=== PATIENT | male | born 1975 | race Caucasian/White ===

== ENCOUNTER 2018-09-27 09:33 | Inpatient (IN) | payer BC, OTHER ==
[~2018-09-27] VITALS: Ht 190.5 cm; Wt 92.5 kg
--- NOTE | ~2018-09-27 | O ---
[facility] [place] [address] OPERATIVE REPORT Name: Miles Lilly Room #: 458-P ADM IN M.R.#: [id number] Admission: 09/27/18 ������������������ Attend Phys: Amadeo Curtis MD Discharge: ������������������ Date of : 77 Report #: [id number] THIS REPORT FOR: //name// CC: Amadeo Morgan daryny DATE OF SERVICE: 09/30/2018 PREOPERATIVE DIAGNOSIS: Left foot, heel abscess. POSTOPERATIVE DIAGNOSIS: Left foot, heel abscess. PROCEDURE: Left foot irrigation and debridement of heel. SURGEON: Niranjan Leavitt MD ANESTHESIA: General. ESTIMATED BLOOD LOSS: Minimal. DRAINS: No drains. TOURNIQUET TIME: 8 minutes. DESCRIPTION OF PROCEDURE: The patient was brought to the operating room where he was placed under general anesthesia. Once under adequate general anesthesia, his left lower extremity was elevated and tourniquet placed to 250 mmHg. A medial incision at the medial aspect of the heel approximately 2 cm in length was then made, abundant purulence did emanate from the wound at this point, cultures were taken of this. A similar incision laterally was made as well. Hemostat was spread to help express purulence. The wound was then irrigated through and through with copious amounts of normal saline solution. A Belden drain was then placed through and through as well. The wound was then dressed with 4 x 4s, ABDs, Kerlix, and Feng. There were no complications from the procedure. Tourniquet was let down at 8 minutes. Toes were pink and warm with good capillary refill. There were no complications from the procedure. The patient tolerated the procedure well and went to the recovery room without incident. ��������������������������������������������� ���������������������������������������� By: ��������������������������������������������� 1902 1925 Niranjan Leavitt MD /nt
[2018-09-27 09:35] VITALS: BP 186/90
[2018-09-27 10:11] LABS: ABSOLUTE NEUTROPHILS 11.3 thou/uL (1.4-8.2); BASOPHILS 0.9 % (0.0-2.0); EOSINOPHILS 1.2 % (0.0-3.0); HEMATOCRIT 42.9 % (42.0-52.0); HEMOGLOBIN 14.9 gm/dL (14.0-18.0); LYMPHOCYTES 9.7 % (24.0-44.0); MCH 30.6 pg (26.0-34.0); MCHC 34.6 g/dL (28.0-37.0); MCV 88.3 fL (80.0-100.0); MONOCYTES 9.2 % (1.0-8.0); PLATELET COUNT 241 thou/uL (150-400); RBC 4.86 mil/uL (4.50-6.00); RDW 14.1 % (10.5-14.5); WBC 14.3 thou/uL (4.0-11.0)
[2018-09-27 10:17] LABS: CALCIUM 9.4 mg/dL (8.5-10.1); CREATININE 1.1 mg/dL (0.7-1.3)
[2018-09-27 10:22] LABS: ALBUMIN 3.8 g/dL (3.4-5.0); TOTAL BILIRUBIN 0.5 mg/dL (<0.1-1.0); TOTAL PROTEIN 8.4 g/dL (6.4-8.2)
[2018-09-27 11:00] VITALS: BP 139/90
[2018-09-27 12:47] VITALS: BP 149/89
[2018-09-27] MEDS ORDERED: PRAZOSIN 1 MG CA1 M1 PO (13:24)
[2018-09-27] MEDS ORDERED: TRAZODONE HCL50 MG PO (13:25)
[2018-09-27] MEDS ORDERED: PAXIL10 MG PO (13:25)
[2018-09-27] MEDS ORDERED: NEURONTIN600 MG PO ×2 (13:26→13:27)
[2018-09-27] MEDS ORDERED: LEVAQUIN 750 M750 MG PO (13:28)
[2018-09-27] MEDS ORDERED: CLEOCIN HCL150 MG PO (13:28)
--- NOTE | 2018-09-27 16:17 | NUR ---
PATIENT ADMITTED FOR CELLULITIS. A/OX4, PAIN MANAGED WITH MEDICATIONS, DR GIVENS ROUNDED ON PATIENT DURRING ADMISSION. MRI TO BE COMPLETED TOMORROW. FALL PRECATIONS DUE TO RECENT AT HOME AND PATIENT IS NOT ABLE TO BEAR WEIGHT ON LEFT FOOT THAT HAS THE CELLULITIS. ADMISSION ASSESMENT AND HISTORY. COMPLETED. CALL LIGHT IN REACH.
[2018-09-27 19:26] VITALS: BP 157/82
--- NOTE | 2018-09-28 03:44 | NUR ---
ASSUMED PT CARE AROUND 1900. A&OX4. C/O LEFT HEEL PAIN. PAIN MEDICATION GIVEN WITH SOME RELIEF. LT HEEL IS WARM, RED, SWOLLEN. VSS. PT SLEPT MOST OF THE NIGHT. RESP EVEN AND UNLABORED. VOIDING ADEQUATELY PER URINAL. NO MAJOR COMPLAINTS THIS SHIFT. FALL PRECAUTIONS IN PLACE. PROGRESSING SLOWLY TOWARD POC GOALS. WILL CONTINUE TO MONITOR FURTHER.
[2018-09-28 05:55] LABS: ABSOLUTE NEUTROPHILS 7.6 thou/uL (1.4-8.2); BASOPHILS 0.9 % (0.0-2.0); EOSINOPHILS 2.4 % (0.0-3.0); HEMATOCRIT 41.5 % (42.0-52.0); HEMOGLOBIN 14.5 gm/dL (14.0-18.0); LYMPHOCYTES 14.9 % (24.0-44.0); MCH 30.9 pg (26.0-34.0); MCHC 34.9 g/dL (28.0-37.0); MCV 88.7 fL (80.0-100.0); MONOCYTES 10.6 % (1.0-8.0); PLATELET COUNT 244 thou/uL (150-400); POLYS 71.2 % (36.0-66.0); RBC 4.68 mil/uL (4.50-6.00); RDW 14.1 % (10.5-14.5); WBC 10.7 thou/uL (4.0-11.0)
[2018-09-28 05:57] LABS: POTASSIUM 4.1 mmol/L (3.5-5.1)
[2018-09-28 06:03] VITALS: BP 144/96
[2018-09-28 07:47] VITALS: BP 129/64
--- NOTE | 2018-09-28 15:29 | NUR ---
PT ADMITTED RELATED TO CELLULITIS LEFT FOOT. CM REVIEWED CHART AND SPOKE WITH CARE TEAM. CM MET WITH PT AT BEDSIDE THIS DAY. PT IS A&O X4. CM ROLE INTRODCUED. PT INDICATED HE LIVES IN A HOUSE WITH TWO UNRELATED ADULTS AND HIS TWO CHILDREN 3 DAYS A WEEK. PT INDICATED THERE ARE 2 STEPS TO ENTER AND NO STEPS INSIDE. 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 PT INDICATED HE PLANS TO RETURN HOME ONCE MEDICALLY STABLE. CM TO FOLLOW INDICATED WITH DC PLANNING.
[2018-09-28 15:59] VITALS: BP 144/76
--- NOTE | 2018-09-28 16:39 | NUR ---
PT IS ALERT AND OREINTED X4. LUNGS ARE CLEAR TO DIMINISHED. VOIDS PER URINAL HAS PAIN NOTED ACHY IN LEFT LEG IS REDENED AND WARM WITH CELLULITIS ON ANTIBIOTICS COVERAGE. EATING A REGULAR DIET TOLERATING WELL. USES CALL LIGHT IF NEEDS ASSISTANCE FOR NURSING CARE. PAIN MEDS GIVEN ON MAY SEE TIME FOR ADMINISTRATION OF MEDS. DIAGNOSTIC TESTING DONE THIS AM. AND ORTHO CONSULT NOTIFIED. WILL CONTINUE TO ASSESS AND MONITOR PER NURSING
--- NOTE | 2018-09-28 17:41 | HC ---
[facility] [place] [address] CONSULTATION Name: Miles Lilly Room #: 458-P ADM IN M.R.#: [id number] Admission: 09/27/18 ������������������ Attend Phys: Amadeo Curtis MD Discharge: ������������������ Date of : 77 Report #: [id number] THIS REPORT FOR: //name// CC: Amadeo Delcid DATE OF SERVICE: 09/27/2018 REASON FOR CONSULTATION: I was asked to evaluate concerning left heel pain for the last 10 days. HISTORY OF PRESENT ILLNESS: The patient is a 42-year-old with history of PTSD, anxiety and depression who presents with increased pain, swelling involving his left heel. No specific injury identified. Onset was 10 days ago. 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 No specific injury noted or foreign body noted in his boots. He has had low-grade fever, chills and sweats. Started on ciprofloxacin and clindamycin several days ago without improvement. Presents now for further evaluation. He reports the pain in his foot is up to a 10. No other skin lesions noted. No other joint issues. REVIEW OF SYSTEMS: A 10-point review of systems was negative other than what was described above. ALLERGIES: None known. MEDICATIONS: As noted on his MAR, which were reviewed. PAST MEDICAL HISTORY: PTSD, depression, anxiety, multiple neck and facial reconstructive surgeries, right pointer finger partial amputation, tobacco use. FAMILY HISTORY: Noncontributory. SOCIAL HISTORY: Smoker of cigarettes and marijuana, past alcohol use. PHYSICAL EXAMINATION: VITAL SIGNS: Afebrile and hemodynamically stable. GENERAL: Alert and cooperative. SKIN: With several tattoos, otherwise unremarkable other than what will be described on his extremity examination. No palpable adenopathy. HEENT: Eyes without scleral icterus. Mouth without mucositis. NECK: Supple. LUNGS: Clear. HEART: Regular, without murmur, gallop or rub. ABDOMEN: Soft, nontender, no hepatosplenomegaly or mass. GENITAL AND RECTAL: Not performed. EXTREMITIES: Pulses in his right femoral, popliteal, and foot normal. Right [facility] [address] [place] [address] CONSULTATION Name: Miles Lilly Room #: 458-P ADM IN M.R.#: [id number] Admission: 09/27/18 ������������������ Attend Phys: Amadeo Curtis MD Discharge: ������������������ Date of : 77 Report #: [id number] foot with erythema, fluctuance involving the heel pad, which extended to the ankle. There was some ecchymosis. There was erythema involving the hindfoot and ankle region. Had exquisite tenderness to palpation over the heel pad. I could find no break into the skin. Sensation in his feet were normal. Capillary refill normal. Strength in the upper and lower extremities was normal. Mood normal. LABORATORY STUDIES: Creatinine 1.1. Liver function test normal. Hemoglobin 14.9, white count 14.3, platelet count 241,000. X-ray of his foot showed no evidence of bony change or foreign body. IMPRESSION: 1. A 42-year-old with soft tissue infection of his left hindfoot. Suspect heel pad abscess. Still unclear if he may have a foreign body that is not radiopaque. 2. Underlying history of tobacco use. 3. Depression, under control. 4. Posttraumatic stress disorder, controlled. RECOMMENDATION: Consultation for surgical intervention. We will continue IV antibiotic therapy, make adjustments after cultures are back. Continue with pain management. MRI scan is scheduled. ��������������������������������������������� <ELECTRONICALLY SIGNED> ���������������������������������������� By: Maged Earl MD ��������������������������������������������� 09/28/18 1741 [id number] Maged Earl MD /nt
--- NOTE | 2018-09-28 18:23 | EKG ---
[address] [address] ELECTROCARDIOGRAM REPORT Name: Miles Lilly Room #: 458-P ADM IN M.R.#: [id number] ������������������ Admission: 09/27/18 ������������������ Attend Phys: Amadeo Curtis MD Discharge: ������������������ Date of : 77 Report #: [id number] ����������������������������������������������������������������� [id number] THIS REPORT FOR: //name// [facility] Test Date: 2018-09-27 Test Time: 15:22:06 Pat Name: Miles Lilly Department: Room: [facility] Gender: M Tape Recorder Repairer: Odell VILLAFUERTE : 1975 Requested By: Dayday Padron Order Number: [id number] MD: Raymond Pierson Measurements Intervals [place] Rate: 66 P: -16 DC: 118 QRS: 78 QRSD: 112 T: 5 QT: 388 QTc: 407 Interpretive Statements Sinus rhythm Right ventricular conduction delay No previous ECG available for comparison Electronically Signed On 09-28-2018 18:22:59 CDT by Raymond Pierson [email or web address] ��������������������������������������������� <ELECTRONICALLY SIGNED> ���������������������������������������� By: Raymond Pierson MD, [facility] ��������������������������������������������� 09/28/18 1822 1522 1522 Raymond Pierson MD, FACC /EPI
--- NOTE | 2018-09-28 18:35 | NUR ---
PT IS ALERT AND ORIENTED X4. LEG IS TENDER LEFT ANKLE REDENED AND 2 PLUS EDEMA. MRI DIAGNOSTIC TESTING DONE. ANTIBIOTICS ON MAY FOR CELLULITIS ORDERED. PAIN MEDS GIVEN SEE MAY FOR PAIN TIME OF ADMINISTRATION AND ANKLE PAIN ACUTE OF ANKLE. LUNGS ARE CLEAR. VOIDS PER URINAL. VS STALBE. CALL LIGHT WITHIN REACH IF NEEDS ASSISTANCE
[2018-09-28 19:07] VITALS: BP 149/85
[2018-09-29 04:26] VITALS: BP 149/78
--- NOTE | 2018-09-29 06:04 | NUR ---
END OF SHIFT NOTE. ASSUMED CARE AT 1900 09/28/18. PATIENT A&O X4. PT SHOWERED WITH ASSISTANCE. C/O PAIN IN LEFT HEEL, TREATED WITH PRN PAIN MEDICATIONS. IV INFILTRATED, A NEW ONE WAS INSERTED.
[2018-09-29 07:26] VITALS: BP 138/73
--- NOTE | 2018-09-29 11:53 | NUR ---
Received awake on bed. Due medications given as prescribed. On regular diet- able to tolerate diet, no nausea, no vomiting, no abdominal pain noted. With SL at R FA- intact and flushing well. With cellulitis at L foot- still painful to touch and inflammed- on IV antibiotics. Up with assist. Complained of pain, due PRN pain medications given as prescribed. Vital signs stable. On room air.
--- NOTE | 2018-09-29 14:53 | NUR ---
Nutrition: Pt admitted with cellulitis of left foot. Seen due to dx. Pt tolerating regular diet and has a good appetite. Reviewed good nutrition, adequate protein intake for healing. Educated on how to order meals if desired. Stable weights around 220#. 204# weight taken suspected to be error. Low nutrition risk.
[2018-09-29 16:34] VITALS: BP 134/71
[2018-09-30] VITALS (8 sets, daily range): BP systolic 123–174; BP diastolic 74–96
--- NOTE | 2018-09-30 08:09 | NUR ---
Assumed care at 1845. Pt resting in bed. AOX4. VSS. Left leg elevated. No clear date of I&D schedule as of yet. Pt IV came of while he was turning at shift change. Attempted twice and informed the incoming nurse. No identified needs at the moment. Will continue to monitor.
--- NOTE | 2018-09-30 13:08 | NUR ---
TOWARDS POC PT A/OX4, VSS, AFEBRILE. PAIN MANAGED BY MEDS, ANTICIPATING I&D THIS AFTERNOON. NO CONCERNS VOICED. WILL CONTINUE TO MONITOR.
[2018-10-01 04:00] VITALS: BP 126/71
[2018-10-01 05:19] LABS: HEMATOCRIT 44.1 % (42.0-52.0)
[2018-10-01 05:37] LABS: POTASSIUM 4.1 mmol/L (3.5-5.1)
[2018-10-01 07:08] VITALS: BP 136/67
--- NOTE | 2018-10-01 07:12 | NUR ---
ASSUMED CARE AROUND 2029. AXOX4. S/P L HEEL I&D. VSS THROUGHOUT THE NIGHT. DIET ADVANCED TO REG. LLE ELEVATED AND PT DECLINED ICE PACKS AT THIS TIME. NO S/S ACUTE DISTRESS NOTED OR REPORTED AT THIS TIME. CARE TRANSFERRED TO DAY RN AT THIS TIME.
[2018-10-01 12:50] VITALS: BP 137/80
[2018-10-01 14:54] VITALS: BP 130/71
--- NOTE | 2018-10-01 16:11 | NUR ---
DISCHARGE PLANNING. POSSIBLE WEEKEND DISCHARGE TO HOME. HOME HEALTH SERVICES RECOMMENDED AT DISCHARGE. REFERRAL FAXED TO [facility] FOR PATIENTS HOME HEALTH NEEDS PER REQUEST. PATIENT WILL NEED WOUND CARE AND POSSIBLE IV ANTIBIOTIC INFUSION. AWAITING RESPONSE FROM [facility] INTAKE. FOLLOWING TO ASSIST WITH DISCHARGE NEEDS. [facility] CONTACT NUMBER IS [phone] CALL AND NOTIFY OF PATIENT DISCHARGE. A FAX NUMBER IS [phone] PLEASE FAX DISCHARGE AND HOME HEALTH ORDERS TO [facility] ONCE COMPLETED PER ATTENDING. THANK YOU
--- NOTE | 2018-10-01 16:42 | NUR ---
CM UNCERTAIN IF PT WILL NEED IV ABX UPON DC CM SENT FACE SHEET TO [facility] AND THEY INDICATED THAT THEY ARE IN NETWORK WITH PT'S INSURANCE. THEY INDICATED THAT FOR THE VANCO AND CEFTRIAXONE IT WOULD BE $47.48 PER DAY UNTIL $2000 DEDUCTABLE IS MET OF WHICH $36.35 HAS BEEN MET AND A $5/750 OUT OF POCKET OF WHICH $86.49 HAS BEEN MET. REFERRAL WAS ALSO SENT TO [facility] WHO DON'T GO TO [place], [facility] WHO ARE AT [place], AND [facility]. [facility] WOULD BE THE ONE TO SEND ORDERS TO SHOULD PT BE READY TO LEAVE OVER WEEKEND. [facility]: P: F: [facility]: P: F:
[2018-10-01 16:52] VITALS: BP 130/71
--- NOTE | 2018-10-01 19:27 | NUR ---
PT A&OX4, VSS, PAIN IN LEFT FOOT. PATIENT STATES HIS PAIN IS CONSTANT. PAIN MEDICATION ALTERNATED Q2 HRS. LEFT LEG ELEVATED. ANTIBIOTICS RAN ORDERED. DOCTOR ORDERED PICC LINE TO BE INSERTED AND CONSENT HAS BEEN SIGNED FOR IV TEAM TO DO SO. FALL PRECATIONS IN PLACE. NO SIGNS OF DISTRESS. DRESSING ON FOOT C/D/I. WILL CONTINUE TO MONITOR.
[2018-10-01 19:34] VITALS: BP 148/92
--- NOTE | 2018-10-01 19:52 | NUR ---
vascular access team consulted for picc placement. WHEN TALKING TO PATIENT ABOUT PROCEDURE, PT BEGAN TO BECOME VERY AGGITATED AND CRYING. STATES 2 DOCTORS TOLD HIM 2 DIFFERENT THINGS SO HE REFUSED PICC TONIGHT. PRIMARY RN PRESENT. PIV WORKING WELL AT PRESENT
[2018-10-02] VITALS (7 sets, daily range): BP systolic 130–159; BP diastolic 67–85
--- NOTE | 2018-10-02 03:24 | NUR ---
PATIENT'S 1400 DOSE OF VANCO WAS NOT INFUSED IT WAS BURNING PATIENT DURING THE DAY. PATIENT WAS TO HAVE A PICC LINE PLACED ON DIRECTOR OF FIELD COORDINATION. IV TEAM CAME TO PLACE PICC, HOWEVER, PATIENT REFUSED STATING HE WOULD LIKE TO WAIT UNTIL AM SHIFT AND TALK TO DOCTORS ONE DOCTOR TOLD HIM ONE THING AND ANOTHER DOCTOR TOLD HIM SOMETHING ELSE REGARDING THE PICC LINE. THIS NURSE JUST HUNG THE 0200 VANCO PATIENT WAS ASLEEP AND HAD A DIFFICULT TIME WITH HIS PAIN AT SHIFT CHANGE. THE PATIENT STATED THAT HE WOULD TRY THIS INFUSION AND IT WAS STARTED AT A SLOWER RATE TO HELP WITH HIS DISCOMFORT. WILL MONITOR.
--- NOTE | 2018-10-02 03:42 | NUR ---
MEDICATED WITH VICODIN AND MORPHINE (SWITCHING MEDS) PER PATIENTS REQUEST. ALSO GIVEN ATIVAN 1MG PO FOR ANXIETY. PLACED NICOTINE PATCH ON LEFT UPPER BACK HE IS A SMOKER OF APPROX. 1 PACK A DAY PER HIS MOTHER (VIA PHONE CALL) AND HIMSELF. WILL MONITOR.
--- NOTE | 2018-10-02 14:32 | NUR ---
VASCULAR ACCESS CONSULTED 10/01 FOR PICC LINE, PT STILL REFUSING PICC BUT AGREED TO MIDLINE. DISCUSSED BENEFITS AND RISK OF MIDLINE VERBALIZED UNDERSTANDING. PT VERY ANXIOUS. ELIAS BASILIC WAS WIDELY PATENT WITH USG, DURING LIDOCAINE ADMINISTRATION PT SCREAMING AND THRASHING IN BED. 4FR POWER MIDLINE TRIMMED TO 14CM INSERTED PER POLICY. BRISK BR/FLUSH. ML RELEASED FOR IMMEDIATE USE PER PROTOCOL.
--- NOTE | 2018-10-02 18:35 | NUR ---
ASSUMED CARE OF PATIENT 0715, PATIENT ALERT AND ORIENTED X 4. 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 PATIENT NPO AT BREAKFAST. PATIENT ALSO RECEIVED HYDROCODONE 1 TABLET THIS AM, AND RECEIVED MORPHINE AT 1307, WITH PARTIAL RELIEF. PATIENT LEFT THE FLOOR AT ABOUT 1430 FOR SURGERY. RETURNED BACK TO THE UNIT AT 1730, PAIN LEVEL OK, PATIENT HAS LEFT FOOT DRESSING IN PLACE, WITH MORE PADDING FOR COMFORT. ASKING FOR SLEEP AIDS FOR TONIGHT, PAGED DR MURDOCK, NO RETURN CALL BACK, WILL HAVE NIGHT NURSE ADDRESS SLEEP MEDS. DINNER TRAY ORDERED AND RECEIVED. WILL CONTINUE TO MONITOR. PATIENT HAS RIGHT FOREARM IV, BUT STARTED LEAKING, CALLED IV TEAM, PATIENT RECEIVED LEFT UPPER ARM MIDLINE. PATIENT RECEIVED VANCO IV IN SURG. WILL CONTINUE TO MONITOR.
--- NOTE | 2018-10-03 03:52 | NUR ---
PATIENT ALERT AND ORIENTED X4. REMAINS BEDREST, HOWEVER, HE STATED THAT THE DOCTOR TOLD HIM HE COULD GET IN A WHEELCHAIR AND GO OUTSIDE FOR SOME AIR. PATIENT IS HAVING A MUCH BETTER NIGHT REGARDING PAIN AND REST. LEFT FOOT UP WITH PILLOW AND DRESSING REMAINS DRY AND INTACT. A NEW ORDER FOR AMBIEN 10MG WAS OBTAINED AND GIVEN. THIS NURSE CINDY AM BLOOD ORDER FROM HIS MIDLINE W/O COMPLICATION. WILL MONITOR.
[2018-10-03 05:57] LABS: EOSINOPHILS 2.5 % (0.0-3.0); HEMATOCRIT 40.2 % (42.0-52.0); HEMOGLOBIN 13.6 gm/dL (14.0-18.0); LYMPHOCYTES 16.5 % (24.0-44.0); MCH 30.3 pg (26.0-34.0); MCHC 33.8 g/dL (28.0-37.0); MCV 89.6 fL (80.0-100.0); MONOCYTES 11.1 % (1.0-8.0); PLATELET COUNT 262 thou/uL (150-400); POLYS 68.9 % (36.0-66.0); RBC 4.49 mil/uL (4.50-6.00); RDW 14.3 % (10.5-14.5); WBC 10.1 thou/uL (4.0-11.0)
[2018-10-03 08:14] VITALS: BP 141/70
--- NOTE | 2018-10-03 09:32 | O ---
[facility] [place] [address] OPERATIVE REPORT Name: Miles Lilly Room #: 458-P ADM IN M.R.#: [id number] Admission: 09/27/18 ������������������ Attend Phys: Amadeo Curtis MD Discharge: ������������������ Date of : 77 Report #: [id number] THIS REPORT FOR: //name// CC: Amadeo Morgan osey DATE OF SERVICE: 10/02/2018 SERVICE: Orthopedics. FACILITY: [facility] SURGEON: Paul Russell MD DOLLY PUSHER: Arleth Mckeon NP. PREOPERATIVE DIAGNOSES: 1. Left heel wound. 2. Status post left heel I and D. POSTOPERATIVE DIAGNOSES: 1. Left heel wound. 2. Status post left heel I and D. PROCEDURE: Repeat I and D left heel wound measuring 6 cm x 5 cm. COMPLICATIONS: None. DRAINS: None. SPECIMENS: Cultures x 1. FINDINGS: 1. A small pocket of purulence at the distal aspect of the medial incision. Otherwise, wound was clean of purulence. 2. Iodoform packing placed within the wound. INDICATIONS: The patient is a 42-year-old gentleman with a history of a left heel wound that underwent I and D 2 days ago. He was having some increased pain this morning and did not tolerate his dressing change, so we evaluated carefully, found some additional drainage and felt that repeat surgical I and D was most appropriate. The patient was in agreement with treatment plan and gave full informed consent after the risks, benefits, alternatives, and indication of surgery were reviewed with him. PROCEDURE IN DETAIL: After left lower extremity was correctly identified in the [facility] [address] [place] [address] OPERATIVE REPORT Name: Miles Lilly Room #: 458-P ADM IN M.R.#: [id number] Admission: 09/27/18 ������������������ Attend Phys: Amadeo Curtis MD Discharge: ������������������ Date of : 77 Report #: [id number] preoperative holding area as the operative extremity, the patient was taken to the operating room where general anesthesia was induced without complication. Tourniquet was applied to the left calf. Left leg was prepped and draped in standard sterile fashion. He is already on antibiotic regimen. Time-out procedure was performed. Previous dressing had been taken down for prepping and draping. There is a medial wound and a lateral wound. The medial wound was extended by about 8 mm in a distal fashion as there was purulence in this portion of the wound. The wound was explored including superficially underneath some skin and there was approximately 2 mL of purulence within this space. This was bluntly explored and then the skin was resected with the scissors off of the heel, which left a pink beefy appearing dermal layer. A [place] was then used to debride the superficial aspect of the dermal layer, particularly on the center portion of the plantar side of the heel where there is some soft tissue injury, but there was no communication with a deep layer. The [place] was used to abrade the soft tissue within the wound bed. There was no exposed calcaneal bone. There were no more purulence deep within the wound. It was explored all the way across to the lateral wound. Then, 2 liters of saline was used to irrigate the wound thoroughly and then the wound was packed with iodoform gauze and then a nonstick dressing was placed followed by well-padded sterile dressing. The patient was awakened from anesthesia and taken to recovery room in stable condition. No complications. All counts were recorded as correct. ��������������������������������������������� <ELECTRONICALLY SIGNED> ���������������������������������������� By: Paul Russell MD ��������������������������������������������� 10/03/18 0932 1643 1830 Paul Russell MD /nt
[2018-10-03 15:00] VITALS: BP 132/66
[2018-10-03 19:51] VITALS: BP 135/67
--- NOTE | 2018-10-03 20:11 | NUR ---
ASSUMED CARE OF PATIENT AT 0715, PATIENT ALERT AND ORIENTED X 4. UP WITH ASSIST, WITH WALKER, NON-WEIGHT BEARING ON LEFT FOOT. WOUND CARE DOCTOR SAW THE PATIENT AND REMOVED SOME OF THE PACKINGS. PATIENT HAS BEEN IN PAIN ALL THE SHIFT, NOTIFIED ORTHO/NAOMY/YARD LABOR SUPERVISOR FOR MORE PAIN MEDS, RECEIVED ORDERS FOR MSCONTINE AND NAOMY/YARD LABOR SUPERVISOR STATES DR HONG STATES OK TO GIVE NOW, MS CONTIN 15MG AND LORAZEPAM 1 MG PO GIVEN, PATIENT STATES SOME RELIEF, 08/16. PATIENT HAS LEFT UPPER ARM MIDLINE IN PLACE, RECEIVED 2 IV ANTIBIOTICS THIS SHIFT. LEFT FOOT DRESSING C/D/I. WILL CONTINUE TO MONITOR.
--- NOTE | 2018-10-04 06:51 | NUR ---
PATIENT ALERT AND ORIENTED X4. USING URINAL W/O COMPLICATION. IVPB INFUSED W/O COMPLICATION. MEDICATED FOR PAIN X3 WITH VICODIN 10/325 TWO TABS. THIS GIVES PATIENT MORE RELIEF, HOWEVER STILL RATING PAIN 7-8. GIVEN ATIVAN X1 DURING THE NIGHT. RESTING QUIETLY. DRESSING DRY AND INTACT. WILL MONITOR.
[2018-10-04 08:00] VITALS: BP 148/83
--- NOTE | 2018-10-04 10:49 | NUR ---
SW received consult with home IV abx orders: ceftriaxone 1 gm IV daily and vancomycin 1 gm IV BID. SW faxed orders and midline report to [facility] and notified [employer] liaison of info. Awaiting verification of insurance coverage for abx. Pt will d/c home when medically stable. VERONICA is following to assist as needed with discharge planning.
[2018-10-04 15:00] VITALS: BP 146/77
[2018-10-04 17:35] LABS: AMP/METHAMP Negative (Negative); BARBITURATES Negative (Negative); BENZODIAZEPINES Negative (Negative); COCAINE Negative (Negative); METHADONE Negative (Negative); OPIATES POSITIVE (Negative); PCP Negative (Negative)
--- NOTE | 2018-10-04 19:51 | NUR ---
ASSUMED CARE 0700. ALERT X4, BECAME UPSET WITH CRYING AND SHAKING AND CUSSING AGGITATED AND EMOTIONAL. AFTER DRESSING WAS REMOVED BY SURGEON TODAY. PT REQUIRED ENCOURAGEMEN AND PAIN MEDS PRIOR REPLACING DRESSING THIS MORNING. HE WAS YELLING, AND CUSSING AND VOICED HE DID NOT WANT TO HAVE THE SAME SURGEON. TRAE PEREIRA CALLED FOR POSSIBLE ASSISTANCE. PATIENT ABLE TO CALM DOWN ONCE DRESSING WAS REPLACED. HE WAS COMPLAIN WITH ALL CARES. WOUND CARE ROUNDED AND ATTEMPTED TO CHECK DRESSING. AFTER PRE-MEDICATING FOR PAIN WOUND CARE WAS UNABLE TO PROVIDE DRESSING CHANGE. PLANS TO HAVE SURGERY TOMORROW TO PROVIDE DRESSING CHANGE. NPO AFTER MIDNIGHT. INFUSSION NURSE ROUNDED AND EDUCATED PT ON IV MEDICATIONS, PT WOULD LIKE TO DC HOME TOMORROW AFTER SURGERY. CONTINENT TO URINAL. PHYSICAL THERAPY ROUNDED AND NOTIFIED THE NURSE HE FOUND WHAT LOOKED LIKE A RECREATIONAL DRUG PARAPHENALIA IN PT'S BED. THIS NURSE CHECKED TO SEE THE ITEM HOWEVER, IT WAS NO LONGER IN SIGHT. DR MURDOCK WAS NOTIFIED OF BOTH INCIDENTS. NOTICED PATIENT IS LAUGHING WITH FAMILY MEMEBERS BUT WHEN ASKED PAIN LEVEL HE STATES 8/10. TREATED PAIN ACCORDING TO PAIN LEVEL. FALL PRECAUTIONS IN PLACE. CALLS FOR ASSISTANCE. PATIENT ADVICATE ROUND ON THIS PATIENT TODAY.
[2018-10-04 20:38] VITALS: BP 137/75
[2018-10-05] VITALS (7 sets, daily range): BP systolic 116–168; BP diastolic 65–86
--- NOTE | 2018-10-05 03:09 | NUR ---
ASSUMED CARE AROUND 1900. AXOX4. PERSISTENT PAIN ON L FOOT. KEPT NPO FOR SURGERY IN AM. PAIN MANAGED PER MD ORDER. VANC TROUGH READY FOR ID THIS MORNING. NO S/S ACUTE DISTRESS NOTED OR REPORTED AT THIS TIME. WILL CONT TO MONITOR FOR ANY CHANGES IN CONDITON.
--- NOTE | 2018-10-05 09:25 | HC ---
[facility] [place] [address] CONSULTATION Name: Miles Lilly Room #: 458-P ADM IN M.R.#: [id number] Admission: 09/27/18 ������������������ Attend Phys: Amadeo Curtis MD Discharge: ������������������ Date of : 77 Report #: [id number] THIS REPORT FOR: //name// CC: Amadeo Stanleyy DATE OF SERVICE: 10/03/2018 WOUND CARE CONSULTATION NOTE LOCATION: [facility]. REASON FOR CONSULTATION: Cellulitis and abscess of left heel, status post OR incision and debridement on ____ and previously on ____. 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 He was taken to the operating room after IV antibiotics failed to make this better on 09/30, where he had an OR incision and drainage by Dr. Niranjan Leavitt on 09/30 with findings of a left heel abscess. This was incised and drained. Drains were placed. The patient remained on IV antibiotics. The patient had continued pain and evidence of residual drainable abscess, was taken back to the operating room yesterday, 10/02, by Dr. Russell, where a reaccumulation of a small volume of purulence was found. Wide incision and drainage was done and drains and packs were placed. Wound Care team was consulted to follow the wound. PAST MEDICAL HISTORY: Anxiety and depression, history of posttraumatic stress disorder. SOCIAL HISTORY: Tobaccoism. PAST SURGICAL HISTORY: Multiple neck and facial reconstructive surgeries; right index finger partial amputation; heel surgeries, 09/30 and 10/02. FAMILY HISTORY: Noncontributory. PHYSICAL EXAMINATION: GENERAL: Shows a healthy, well-appearing, well-nourished, middle-aged male. HEENT: Mucous membranes moist. NECK: Supple. HEART: Shows regular rate and rhythm. ABDOMEN: Soft. EXTREMITIES: Exam shows surgical dressing of the left heel, which is removed. Feng wrap and Kerlix are removed. There is Xeroform covering the left heel over [address] [address] CONSULTATION Name: Miles Lilly Room #: 458-P ADM IN M.R.#: [id number] Admission: 09/27/18 ������������������ Attend Phys: Amadeo Curtis MD Discharge: ������������������ Date of : 77 Report #: [id number] an area of desquamation. There is an incision at drain site, lateral left heel, with protruding iodoform gauze; 7-8 inches of the iodoform gauze were removed from the packed heel wound. Remainder of the Xeroform gauze was left intact. There is no evidence of purulence. There is desquamation of the superficial skin of the heel covered with Xeroform, which was replaced. No evidence of purulence or extreme cellulitis, but the wound is tender. Wound is re-dressed with Xeroform gauze, ABD, bulky Kerlix and an Feng. IMPRESSION: Left heel abscess with cellulitis and desquamation of the heel, status post 2 surgeries, 09/30 and 10/02. PLAN: Continue IV antibiotics. Local wound care with removing of the iodoform pack sequentially on a daily basis; a portion of the iodoform pack was removed today; 5-6 inches can be removed tomorrow. Xeroform dressing to the left heel. Order bacitracin ointment to the left heel for the next dressing change. Keep left foot elevated. Continue IV antibiotics. Dr. Neri is following. Wound Care team will follow. ��������������������������������������������� <ELECTRONICALLY SIGNED> ���������������������������������������� By: Jarrell Mendiola MD ��������������������������������������������� 10/05/18 0925 [id number] Jarrell Mendiola MD /nt
--- NOTE | 2018-10-05 14:13 | NUR ---
Received awake on bed. A+Ox4. Able to urinate using urinal. Assisted in ADLs. Falls risk- falls bundle in place. On NPO- patient informed and aware. With midline at L Upper arm- patent and flushing well. On room air. Pt scheduled for I&D today, a/w time; with consent signed. Pt maintained on isolation due to MRSA at wound. OR staff called, to bring down patient around [id number]- pt informed. Pt complained of pain, due PRN pain medications given as prescribed. OR staff informed that patient with due Vancomycin IV at 1400- to bring down together with patient this afternoon, Pharmacy called- spoken to staff Paul and will bring afternoon dose to OR. Vital signs stable.
--- NOTE | 2018-10-05 17:13 | NUR ---
PT WAS TAKEN TO THE OR TODAY FOR REPEAT I&D AND DRESSING CHANGE. PLAN IS FOR PT TO DC HOME ON IV ABX WITH [facility] ONCE MEDICALLY STABLE. CM TO FOLLOW INDICATED WITH DC PLANNING.
--- NOTE | 2018-10-06 03:44 | NUR ---
Patient alert and oriented x4. Patient has been pleasant and cooperative. Patient remains in contact isolation for MRSA to left leg cellulitis wound. Dressing is clean, dry and intact. Patient has received IV Morphine for pain management. Patient has peripheral nerve block intact to left lower extremity. Patient reports that he feels his pain is manageable at this time. Declines to take PO Hydrocodone and requests IV Morphine. Eating regular diet without difficulty. Using urinal to empty bladder in bed. Received IV Vanc without difficulty. Patient resting quietly in bed at this time.
[2018-10-06 04:25] VITALS: BP 138/65
[2018-10-06 06:07] LABS: ABSOLUTE NEUTROPHILS 15.9 thou/uL (1.4-8.2); BASOPHILS 0.3 % (0.0-2.0); HEMATOCRIT 42.9 % (42.0-52.0); HEMOGLOBIN 14.4 gm/dL (14.0-18.0); LYMPHOCYTES 8.1 % (24.0-44.0); MCHC 33.6 g/dL (28.0-37.0); MCV 89.2 fL (80.0-100.0); MONOCYTES 6.2 % (1.0-8.0); PLATELET COUNT 342 thou/uL (150-400); POLYS 85.4 % (36.0-66.0); RBC 4.81 mil/uL (4.50-6.00); RDW 14.2 % (10.5-14.5); WBC 18.7 thou/uL (4.0-11.0)
[2018-10-06 07:25] VITALS: BP 152/71
[2018-10-06] MEDS ORDERED: HYDROCODON-ACE1 EAC7 PO (11:50)
[2018-10-06] MEDS ORDERED: VANCO 1.51.5 GM/250 IVPB (12:28)
[2018-10-06 13:45] VITALS: BP 130/71
--- NOTE | 2018-10-06 15:18 | NUR ---
PT IS MEDICALLY STABLE TO DC HOME THIS DAY. ORDERS SENT TO [facility] THEY WILL PROVIDE A SOC THIS EVENING. [facility] CAME AND SEW PT THIS AFTERNOON. THEY HAVE FINAL MED ORDERS. PT INDICATED THERAPY RECEOMMENDED FWW INSTEAD OF CRUTCHES. CM ASKED FOR FWW THROUGH [facility]. NO OTHER CM INTERVENTION INDICATED. CASE CLOSED.
--- NOTE | 2018-10-06 16:21 | NUR ---
ASSUMED CARE OF PATIENT AT 0715, PATIENT ALERT AND ORIENTED X 4. PATIENT UP WITH ASSIST WITH WALKER. PATIENT IS NON-WEIGHT BEARING ON LEFT FOOT, DRESSING ON LEFT FOOT C/D/I. PATIENT HAS BUPIVACAINE ATTACHED TO LEFT POPITEAL TO ASSIST WITH PAIN MANAGEMENT, AND IT HAS HELPED PAIN LEVEL. PATIENT C/O PAIN WITH LEFT FOOT, 6/10, HYDROCODONE 1 TABLET GIVEN. PATIENT HAS LEFT UPPER ARM MIDLINE IN PLACE. DR MORA HERE THIS AM, LATER RECEIVED ORDER FOR DISCHARGE TO HOME WITH HOME HEALTH. [facility] CAME TO GIVE INSTRUCTIONS ON HOME INFUSION AND CARE OF [facility]. HOME [facility] WILL SEE PATIENT TONIGHT TO GIVE VANCO IV DOSE. BUPIVACAINE INFUSION DISCONTINUED PRIOR TO DISCHARGE. PATIENT C/O APIN TOO SOON FOR HYDROCODONE. MORPHINE 2 MG IV GIVEN PRIOR TO DISCHARGE. PT WORKED WITH PATIENT PRIOR TO DISCHARGE, PATIENT NEEDS WALKER, BEN/MICHELLE ORDERED WALKER, PATIENT RECEIVED WALKER. ALL DISCHARGE PAPERWORK AND ALL PERSONAL BELONGINGS SENT WITH THE PATIENT. MOTHER AT BEDSIDE, SHE WENT AND GOT HOME MEDS FROM THE PHARMACY. PATIENT DISCHARGE TO HOME. [facility] WILL GO WITH THE PATIENT FOR HOME INFUSION.
== END 2018-10-06 16:30 | disposition home health service (06) | DRG 464 ==
LOC: ER 09:33 → EROBS 10:45 → 4W 10:45 → ER 10:45 → 4W 11:31 → EROBS 11:31 → 4W 11:56 → ENTRNSPT 10-06 15:33 → EDTRNSPTSTS 10-06 15:35 → 4W 10-06 16:30
PROVIDERS: Emergency Medicine; Internal Medicine; Nurse Practitioner; Orthopaedic Surgery Foot and Ankle Surgery; Orthopaedic Surgery Sports Medicine; ADMIT Hospitalist
PROC: 0JBR0ZZ Excision of Left Foot Subcutaneous Tissue and Fascia, Open Approach (ICD-10-PCS; principal; 2018-09-30)
PROC: 0JBR0ZZ Excision of Left Foot Subcutaneous Tissue and Fascia, Open Approach (ICD-10-PCS; 2018-10-02)
DX: M60.872 Other myositis, left ankle and foot (principal); L03.116 Cellulitis of left lower limb; L02.612 Cutaneous abscess of left foot; F43.10 Post-traumatic stress disorder, unspecified; F32.9 Major depressive disorder, single episode, unspecified; F41.9 Anxiety disorder, unspecified; B95.62 Methicillin resistant Staphylococcus aureus infection as the cause of diseases classified elsewhere; R23.4 Changes in skin texture; F17.210 Nicotine dependence, cigarettes, uncomplicated; Z86.14 Personal history of Methicillin resistant Staphylococcus aureus infection; Z89.021 Acquired absence of right finger(s); Z79.899 Other long term (current) drug therapy; Z71.6 Tobacco abuse counseling
CPT/HCPCS: 10040; 27000; 50010; 50101; 50386; 54118; 57091; 57178; 57179; 62110; 62900; 64039; 64042; 64043; 70005

== ENCOUNTER 2018-10-31 14:27 | Emergency (ER) | payer BC, OTHER ==
[~2018-10-31] VITALS: Ht 188 cm; Wt 81.7 kg
[~2018-10-31 14:27] MED LIST: CLEOCIN HCL150 MG PO; HYDROCODON-ACE1 EAC7 PO; LEVAQUIN 750 M750 MG PO; NEURONTIN600 MG PO; PAXIL10 MG PO; PRAZOSIN 1 MG CA1 M1 PO; TRAZODONE HCL50 MG PO; VANCO 1.51.5 GM/250 IVPB
[2018-10-31] MEDS ORDERED: ENOXAPARIN120 MG/0.1 SUBQ (18:02)
[2018-10-31] MEDS ORDERED: COUMADIN 5 MG TA5 M1 PO (18:02)
[2018-10-31] MEDS ORDERED: NORCO 5-325 TA1 EAC1 PO (18:31)
[2018-10-31 18:40] VITALS: BP 136/78
[2018-10-31 18:53] LABS: HEMATOCRIT 39.8 % (42.0-52.0); HEMOGLOBIN 13.7 gm/dL (14.0-18.0); MCH 30.2 pg (26.0-34.0); MCHC 34.5 g/dL (28.0-37.0); MCV 87.5 fL (80.0-100.0); RBC 4.55 mil/uL (4.50-6.00); RDW 14.7 % (10.5-14.5); WBC 9.1 thou/uL (4.0-11.0)
[2018-10-31 19:02] LABS: INR 1.1; PROTIME 11.1 Seconds (9.3-11.4)
== END 2018-10-31 18:40 | disposition home or self-care (01) ==
LOC: ER 14:27
PROVIDERS: Physician Assistant
DX: T82.524A Displacement of infusion catheter, initial encounter (principal); I82.622 Acute embolism and thrombosis of deep veins of left upper extremity; L23.9 Allergic contact dermatitis, unspecified cause; F32.9 Major depressive disorder, single episode, unspecified; F41.9 Anxiety disorder, unspecified; F17.210 Nicotine dependence, cigarettes, uncomplicated; Z86.14 Personal history of Methicillin resistant Staphylococcus aureus infection; Y84.8 Other medical procedures as the cause of abnormal reaction of the patient, or of later complication, without mention of misadventure at the time of the procedure; Y92.89 Other specified places as the place of occurrence of the external cause
CPT/HCPCS: 27000

== ENCOUNTER 2019-02-17 11:47 | Emergency (ER) | payer BC, OTHER ==
[~2019-02-17] VITALS: Ht 188 cm; Wt 104.3 kg
[~2019-02-17 11:47] MED LIST changes: +COUMADIN 5 MG TA5 M1 PO; +ENOXAPARIN120 MG/0.1 SUBQ; +NORCO 5-325 TA1 EAC1 PO
[2019-02-17 12:21] LABS: AMP/METHAMP Negative (Negative); BARBITURATES Negative (Negative); BENZODIAZEPINES Negative (Negative); COCAINE Negative (Negative); METHADONE Negative (Negative); OPIATES Negative (Negative); PCP Negative (Negative)
[2019-02-17 12:35] LABS: ABSOLUTE NEUTROPHILS 7.3 thou/uL (1.4-8.2); BASOPHILS 0.8 % (0.0-2.0); EOSINOPHILS 0.2 % (0.0-3.0); HEMATOCRIT 47.9 % (42.0-52.0); HEMOGLOBIN 16.6 gm/dL (14.0-18.0); LYMPHOCYTES 13.4 % (24.0-44.0); MCH 30.3 pg (26.0-34.0); MCHC 34.6 g/dL (28.0-37.0); MCV 87.8 fL (80.0-100.0); MONOCYTES 6.2 % (1.0-8.0); PLATELET COUNT 248 thou/uL (150-400); POLYS 79.4 % (36.0-66.0); RBC 5.46 mil/uL (4.50-6.00); RDW 14.5 % (10.5-14.5); WBC 9.2 thou/uL (4.0-11.0)
[2019-02-17 12:42] LABS: CALCIUM 9.6 mg/dL (8.5-10.1); CREATININE 1.1 mg/dL (0.7-1.3); POTASSIUM 3.8 mmol/L (3.5-5.1)
[2019-02-17 12:49] LABS: ALBUMIN 4.2 g/dL (3.4-5.0); TOTAL BILIRUBIN 0.6 mg/dL (<0.1-1.0); TOTAL PROTEIN 8.2 g/dL (6.4-8.2)
[2019-02-17 15:19] VITALS: BP 124/78
== END 2019-02-17 15:20 | disposition home or self-care (01) ==
LOC: ER 11:47
PROVIDERS: Physician Assistant
DX: F32.9 Major depressive disorder, single episode, unspecified (principal); F43.10 Post-traumatic stress disorder, unspecified; F41.9 Anxiety disorder, unspecified; F17.210 Nicotine dependence, cigarettes, uncomplicated; Z79.01 Long term (current) use of anticoagulants

== ENCOUNTER 2019-08-09 14:35 | Emergency (ER) | payer OTHER ==
[~2019-08-09] VITALS: Ht 190.5 cm; Wt 99.8 kg
[2019-08-09] MEDS ORDERED: NOHOMEMEDICATIONS (14:45)
[2019-08-09] MEDS ORDERED: MOBIC7.5 MG PO (15:28)
[2019-08-09 16:01] VITALS: BP 127/74
== END 2019-08-09 16:54 | disposition home or self-care (01) ==
LOC: ER 14:35
DX: S93.491A Sprain of other ligament of right ankle, initial encounter (principal); F17.210 Nicotine dependence, cigarettes, uncomplicated; F12.90 Cannabis use, unspecified, uncomplicated; Z79.899 Other long term (current) drug therapy; Z79.01 Long term (current) use of anticoagulants; Z86.14 Personal history of Methicillin resistant Staphylococcus aureus infection; X50.1XXA Overexertion from prolonged static or awkward postures, initial encounter; Y93.89 Activity, other specified; Y92.69 Other specified industrial and construction area as the place of occurrence of the external cause; Y99.9 Unspecified external cause status